=== PATIENT | male | born 2005 ===

== ENCOUNTER 2024-02-12 12:55 | Outpatient (REF) | payer MEDICAID, SELFPAY | END 2024-02-12 12:56 | disposition home or self-care (01) | LOC: HO.SH 12:55 | PROVIDERS: Visit Provider Nurse Practitioner Pediatrics | DX: Z01.118 Encounter for examination of ears and hearing with other abnormal findings (principal); H90.12 Conductive hearing loss, unilateral, left ear, with unrestricted hearing on the contralateral side | CPT/HCPCS: 92557; 92567 ==